=== PATIENT | female | born 1975 | race Caucasian/White ===

== ENCOUNTER 2018-11-29 10:15 | Day surgery (SDC) | payer OTHER ==
[2018-11-23 10:49] LABS: HEMATOCRIT 39.1 % (36.0-47.0); HEMOGLOBIN 13.3 g/dL (12.0-15.5); MEAN CORPUSCULAR HEMOGLOBIN 32.2 pg (27.0-33.4); MEAN CORPUSCULAR HGB CONC 33.9 g/dL (32.0-36.0); MEAN CORPUSCULAR VOLUME 95 fl (80-97); PLATELET COUNT 262 10^3/uL (150-450); RED BLOOD COUNT 4.12 10^6/uL (3.72-5.28); RED CELL DISTRIBUTION WIDTH 13.2 % (11.5-14.0)
[~2018-11-29 10:15] MED LIST: ACETAMINOPHEN 325 MG TABLET PO PRN; CIPROFLOXACIN 400 MG/D5W RTU 400 MG/200 ML RTUPB IV ONE; CIPROFLOXACIN 400 MG/D5W RTU 400 MG/200 ML RTUPB IV PRN; LACTATED RINGERS 1000 ML IV PRN; LIDOCAINE 0.5% INJ-PF (5 MG/ML) 50 ML SDV SUBCUT PRN; LIDOCAINE 1% INJ-PF (10 MG/ML) 30 ML SDV ONE; LIDOCAINE 1%/EPINEPHRINE INJ 20 ML VIAL ONE; MICROFIBRILLAR COLLAGEN 1 GM PACK ONE
[2018-11-29] MEDS ORDERED: MIDAZOLAM 2 MG/2 ML INJ ONE (11:34)
[2018-11-29] MEDS ORDERED: HYDROMORPHONE HCL INJ/PF 2 MG/ML AMPULE ONE (11:34)
[2018-11-29] MEDS ORDERED: FENTANYL CITRATE INJ/PF 100 MCG/2 ML AMPUL ONE (11:34)
[2018-11-29] MEDS ORDERED: PROPOFOL INJ 200 MG/20 ML VIAL IV ONE (11:35)
[2018-11-29] MEDS ORDERED: LIDOCAINE 2% INJ-PF (100 MG/5 ML) SYRINGE ONE (11:35)
[2018-11-29] MEDS ORDERED: PROMETHAZINE HCL INJ 25 MG/1 ML VIAL IV PRN ×2 (12:42)
[2018-11-29] MEDS ORDERED: FENTANYL CITRATE INJ/PF 100 MCG/2 ML AMPUL IV PRN ×3 (12:42)
[2018-11-29] MEDS ORDERED: MORPHINE SULFATE 10 MG/ML INJ IV PRN (12:42)
[2018-11-29] MEDS ORDERED: MEPERIDINE HCL/PF INJ 25 MG/1 ML DISP.SYRIN IV PRN (12:42)
[2018-11-29] MEDS ORDERED: DIPHENHYDRAMINE HCL 50 MG/ML VIAL IV PRN (12:42)
[2018-11-29] MEDS ORDERED: OXYCODONE-ACETAMINOPHEN 5-325 MG TABLET PO PRN (12:42)
--- NOTE | 2018-11-29 13:09 | Discharge Summary ---
Discharge Summary (SDC) - Discharge Final Diagnosis: Right breast mass Date of Surgery: 11/29/18 Discharge Date: 11/29/18 Condition: Good Treatment or Instructions: Patient may shower in 48 hours; take Tylenol Motrin or prescribed Toradol as needed for pain. Patient to follow-up with [place] [facility] 1 to 2 weeks; allow Steri-Strips to fall off. Wear supportive bra. Referrals: KOREY ARRIAZA PA-C [Primary Care Provider] - Discharge Diet: As Tolerated Discharge Activity: Activity As Tolerated Home Care Assistance: None Needed Report the Following to Your Physician Immediately: Shortness of Breath, Increase in Pain, Fever over 101 Degrees
--- NOTE | 2018-11-29 13:14 | Operative Report ---
Operative Report DATE OF SURGERY: 11/29/18 PREOPERATIVE DIAGNOSIS: Abnormal mammogram and palpable density right breast POSTOPERATIVE DIAGNOSIS: Same OPERATION: 1. Open excisional right breast biopsy following needle localization. 2. Interpretation of intraoperative specimen radiographic imaging SURGEON: ERICKA MOY ANESTHESIA: GA TISSUE REMOVED OR ALTERED: Right breast lump with needle, wire, and clip marker COMPLICATIONS: None ESTIMATED BLOOD LOSS: Scant INTRAOPERATIVE FINDINGS: See below PROCEDURE: The patient was seen in the preop holding area after having undergone needle localization of the suspicious area in the upper slightly lateral aspect of the right breast at the site of previous core biopsy and clip deployment by Dr. Moy using ultrasound guidance. Wire localization was performed by Dr. Jauregui. Discussion was held between Dr. Jauregui and Dr. Moy during the positioning of the wire, and needle in relation to the target dense tissue, and the previously placed clip. The patient was taken to the main operating room where general anesthesia was i nduced via orotracheal intubation. The right arm was abducted, right breast prepped and draped in sterile fashion with Betadine. Of note, prior to prepping, the needle and redundant wire were clipped with wire transfer clerk Surgical plan surgical timeout were conducted. Plans were made for a slightly curvilinear 3 to 4 cm incision from the 11 to 12 o'clock position right breast. Skin was anesthetized 1% plain lidocaine. The incision was made with a #10 blade. Needle and wire were mobilized into the now open wound. A right breast lumpectomy was performed primarily using palpation and the direction of the needle as a guide. The specimen was taken down to the deep breast parenchyma. We got underneath the needle and wire in a tapered fashion sending the deep margin of the specimen. By palpation and visual inspection of the breast, there was never any tissue that was suspicious for malignancy. The lump was removed from the right breast, marked with a long suture in the lateral position a short suture in the superior position. The specimen was taken off the field placed in a Shari dish and imaged in the portable radiograph machine in the operating room. This demonstrated presence of wire, needle, and previously placed clip marker all in this specimen. The specimen was sent to pathology for permanent analysis We returned to the right breast, check for any mechanical bleeding there was none. Sponge and needle counts were correct. Wound closed with 3-0 Vicryl benzoin and Steri-Strips. Patient tolerated the procedure well, extubated, taken to recovery in stable condition.
[2018-11-29] MEDS ORDERED: ONDANSETRON HCL INJ/PF 4 MG/2 ML SDV ONE (13:51)
[2018-11-29] MEDS ORDERED: SUCCINYLCHOLINE CHLORIDE INJ 200 MG/10 ML VIAL ONE (13:51)
[2018-11-29] MEDS ORDERED: KETOROLAC TROMETHAMINE 10 MG TABLET ONE (14:57)
[2018-11-29 15:24] VITALS: BP 123/84
--- NOTE | 2018-12-02 16:01 | WOMENS IMAGING REPORT ---
EXAM DESCRIPTION: WIRE LOC MAMMO COMPLETED DATE/TIME: 11/29/2018 1:13 pm REASON FOR STUDY: RT BREAST NEEDLE LOCALIZATION N63.10 N63.10 UNSPECIFIED LUMP IN THE RIGHT BREAST, UNSPECIFIED SUZIE COMPARISON: Outside mammograms 10/26/2018. TECHNIQUE: Two-view mammograms were obtained today, and compared to outside mammograms 10/26/2018. S lázaro the prior outside study 10/26/2018, patient has had a 2nd biopsy clip placed right breast periare olar 12 o'clock position. This is the area to be sampled by needle localization and excisional biops y today. The ultrasound biopsy clip 12 o'clock periareolar region in the right breast was localized mammograp hically using a grid marker. The skin of the breast was prepped in sterile fashion and local anesthe alejo was provided. The localization needle was advanced to the target. The tip was positioned adjace nt to the target and confirmed with two orthogonal views. Surgical dye was not injected for this proc edure. The wire was placed through the needle and the hook engaged. Post procedure mammogram demonst rates satisfactory position of the needle and wire. Specimen radiograph demonstrates the intact localization wire as well as the targeted lesion within t he biopsy specimen. LIMITATIONS: None. FINDINGS: Procedure as above. Pathology: Pending. IMPRESSION: SUCCESSFUL NEEDLE LOCALIZATION OF THE LESION IN THE RIGHT BREAST. FOLLOW-UP PER THE PATIENT'S SURGEON. TECHNICAL DOCUMENTATION: JOB ID: [id number]- All Rights Reserved Reading location - IP/workstation name: [email or web address]
--- NOTE | 2018-12-02 16:02 | RADIOLOGY REPORT (SQ) ---
EXAM DESCRIPTION: BREAST SPECIMEN COMPLETED DATE/TIME: 11/29/2018 1:19 pm REASON FOR STUDY: RIGHT BREAST SPECIMEN / BIOPSY IN OR N63.10 UNSPECIFIED LUMP IN THE RIGHT BREAST, UNSPECIFIED SUZIE COMPARISON: NEEDLE LOCALIZATION MAMMOGRAMS 11/29/2018 OUTSIDE MAMMOGRAMS 10/26/2018 TECHNIQUE: Specimen radiograph from breast procedure performed in the operating room. LIMITATIONS: None. FINDINGS: Specimen radiograph from breast procedure performed in the operating room. A biopsy clip is present within the specimen. Findings were discussed with Dr. Moy in the OR. Please see procedure note for details and final pathology. IMPRESSION: Specimen radiograph. TECHNICAL DOCUMENTATION: JOB ID: [id number] Reading location - IP/workstation name: [email or web address]
== END 2018-11-29 15:00 | disposition home or self-care (01) ==
LOC: OROUT 10:15
PROVIDERS: ATTEND Surgery
DX: N60.41 Mammary duct ectasia of right breast (principal); N60.11 Diffuse cystic mastopathy of right breast; Z88.0 Allergy status to penicillin; Z80.3 Family history of malignant neoplasm of breast
CPT/HCPCS: 36415; 85027; 81025; 88342 ×2; 88341 ×2; 88307 ×2; 00400; 19281; 76098; 19101; J2250; J3010; J3490 ×3; J2001; J0330; J2405; J2704; J0744; 400; 88305; J1170